=== PATIENT | female | born 1955 | race Caucasian/White ===

== ENCOUNTER 2019-06-01 06:52 | Day surgery (SDC) | payer MEDICARE, OTHER ==
[~2019-06-01 06:52] MED LIST: Lactated Ringers 1,000 ML IV SCH
[2019-06-01] MEDS ORDERED: fentaNYL 100 MCG/2 ML SDV ONE (06:59)
[2019-06-01] MEDS ORDERED: Midazolam 1 MG/ML 2 ML SDV ONE (06:59)
[2019-06-01] MEDS ORDERED: Propofol 200 MG/20 ML SDV ONE (06:59)
--- NOTE | 2019-06-01 07:28 | PCM.PREANE ---
Preanesthetic Assessment - Anesthesia/Transfusion/Family Hx Anesthesia History: Prior Anesthesia Without Reaction Family History of Anesthesia Reaction: No Transfusion History: Prior Transfusion Without Reaction Intubation History: Unknown - Review of Systems General: No Symptoms Pulmonary: No Symptoms Cardiovascular: No Symptoms Gastrointestinal: No Symptoms, Other (colon polyps 3 years ago on colonoscopy) Neurological: No Symptoms Other: Reports: None - Physical Assessment Height: 5 ft 4 in Weight: 68.492 kg ASA Class: 2 Mental Status: Alert & Oriented x3 Airway Class: Mallampati = 2 Dentition: Reports: Normal Dentition Thyro-Mental Finger Breadths: 3 Mouth Opening Finger Breadths: 3 ROM/Head Extension: Full Lungs: Clear to Auscultation, Normal Respiratory Effort Cardiovascular: Regular Rate, Regular Rhythm - Allergies Allergies/Adverse Reactions: Allergies Allergy/AdvReac Type Severity Reaction Status Date / Time shellfish derived Allergy Anaphylactic Verified 05/20/19 09:21 Shock - Blood Blood Available: No - Anesthesia Plan Pre-Op Medication Ordered: None - Acknowledgements Anesthesia Type Planned: MAC Pt an Appropriate Candidate for the Planned Anesthesia: Yes Alternatives and Risks of Anesthesia Discussed w Pt/Guardian: Yes Pt/Guardian Understands and Agrees with Anesthesia Plan: Yes PreAnesthesia Questionnaire HEENT History: Reports: Other (See Below) Other HEENT History: wears glasses/contacts Cardiovascular History: Reports: Afib (controled heart rate), High Cholesterol ( placed on cholesterol meds as precautionary measure to prevent build up of carotid plaques) Respiratory History: Reports: None Gastrointestinal History: Reports: Colon Polyp (3 years ago) Genitourinary History: Reports: None [employer] History: Reports: Musculoskeletal History: Reports: None Neurological History: Reports: Migraines Psychiatric History: Reports: None Endocrine/Metabolic History: Reports: Hypothyroidism Hematologic History: Reports: Blood Transfusion(s) Immunologic History: Reports: None Oncologic (Cancer) History: Reports: None Dermatologic History: Reports: None - Past Surgical History Head Surgeries/Procedures: Reports: None HEENT Surgical History: Reports: Oral Surgery Cardiovascular Surgical History: Reports: None Respiratory Surgical History: Reports: None GI Surgical History: Reports: Colonoscopy (3 years ago) Female Surgical History: Reports: Section Endocrine Surgical History: Reports: None Neurological Surgical History: Reports: None Musculoskeletal Surgical History: Reports: None Oncologic Surgical History: Reports: None Dermatological Surgical History: Reports: None - History Comment History Comment: etoh "1x a month" - SUBSTANCE USE Smoking Status *Q: Never Smoker Recreational Drug Use History: No - HOME MEDS Home Medications: Home Meds Ascorbate Calcium [Vitamin C] 500 mg PO DAILY 05/20/19 [History] Aspirin [Halfprin] 81 mg PO DAILY 05/20/19 [History] Diltiazem [Cardizem CD] 120 mg PO DAILY 05/20/19 [History] EPINEPHrine [Epipen] 1 injection SUBCUT ASDIRECTED PRN 05/20/19 [History] Levothyroxine 25 mcg PO DAILY 05/20/19 [History] Multivitamin [Multivitamins] 1 tab PO DAILY 05/20/19 [History] Fish Oil/[place]-3 Fatty Acids [Fish Oil 1,000 MG] 1,000 mg PO DAILY 05/27/19 [ History] Lovastatin 20 mg PO DAILY 05/27/19 [History] - CURRENT (IN HOUSE) MEDS Current Meds: Current Medications Lactated Ringer's (Ringers, Lactated) 1,000 mls @ 125 mls/hr IV ASDIRECTED JOANNE Discontinued Medications Fentanyl (Sublimaze) Confirm Administered Dose 100 mcg .ROUTE .STK-MED ONE Stop: 06/01/19 07:00 Lidocaine HCl (Xylocaine-Mpf 1%) Confirm Administered Dose 5 ml .ROUTE .STK-MED ONE Stop: 06/01/19 07:10 Midazolam HCl (Versed 1 Mg/Ml) Confirm Administered Dose 2 mg .ROUTE .STK-MED ONE Stop: 06/01/19 07:00 Propofol (Diprivan 20 Ml) Confirm Administered Dose 200 mg .ROUTE .STK-MED ONE Stop: 06/01/19 07:00
--- NOTE | 2019-06-01 08:20 | PCM.OPNOTE ---
- General Post-Op/Procedure Note Date of Surgery/Procedure: 06/01/19 Operative Procedure(s): colonoscopy Findings: see [id number] Pre Op Diagnosis: positive fam hx and hx of TA polyp Post-Op Diagnosis: same Anesthesia Technique: Moderate Sedation Primary Surgeon: Reinaldo Howard Complications: None Condition: Good
--- NOTE | 2019-06-01 08:49 | PCM48HPAN ---
Post Anesthesia Note - EVALUATION WITHIN 48HRS OF ANESTHETIC Vital Signs in Normal Range: Yes Patient Participated in Evaluation: Yes Respiratory Function Stable: Yes Airway Patent: Yes Cardiovascular Function Stable: Yes Hydration Status Stable: Yes Pain Control Satisfactory: Yes Nausea and Vomiting Control Satisfactory: Yes Mental Status Recovered: Yes Vital Signs: Last Vital Signs Temp 36.4 C 06/01/19 07:48 Pulse 62 06/01/19 08:23 Resp 11 L 06/01/19 08:23 BP 91/54 L 06/01/19 08:23 Pulse Ox 96 06/01/19 08:23 - COMMENTS/OBSERVATIONS Free Text/Narrative:: No anesthesia problems
--- NOTE | 2019-06-01 08:49 | PCM.POSTAN ---
POST ANESTHESIA ASSESSMENT - MENTAL STATUS Mental Status: Alert, Oriented - VITAL SIGNS Vital Signs: Last Vital Signs Temp 36.4 C 06/01/19 07:48 Pulse 62 06/01/19 08:23 Resp 11 L 06/01/19 08:23 BP 91/54 L 06/01/19 08:23 Pulse Ox 96 06/01/19 08:23 - RESPIRATORY Respiratory Status: Respiratory Rate WNL, Airway Patent, O2 Saturation Stable - CARDIOVASCULAR CV Status: Pulse Rate WNL, Blood Pressure Stable - GASTROINTESTINAL GI Status: No Symptoms - PAIN Pain Score: 0 - POST OP HYDRATION Hydration Status: Adequate & Stable - OBSERVATIONS Free Text/Narrative:: No anesthesia problems
--- NOTE | 2019-06-01 09:37 | OR ---
SURGEON: Reinaldo Howard MD DATE OF PROCEDURE: 06/01/2019 PREOPERATIVE DIAGNOSES: Family history positive and history of TA polyp. PROCEDURE PERFORMED: Colonoscopy. DESCRIPTION OF PROCEDURE: The patient was taken to the endoscopy room. A time out was called, patient identified, and procedure identified. Diprivan was then administrated. Patient went from awake to sleep, hearing doctor talking or door closing is normal. Perineum inspection and digital examination were then performed. A well- lubricated colonoscope was gently inserted through the rectum, advanced past the rectosigmoid junction, the descending colon, splenic flexure, transverse colon, hepatic flexure, ascending colon, arrived to the cecum. Cecum was identified as dictated in the finding. Then the scope was carefully withdrawn while attention was paid to the mucosal surface for any abnormality. Air will be sucked out during the scope withdrawal. At the rectum, retroflexed to examine any rectal diseases, fistula or hemorrhoids. Patient tolerated procedure well. There were no intraoperative complications, and Dr. Howard was present throughout the whole procedure. FINDINGS: 1. The patient is easily sedated with MET[employer] MAINTENANCE PERSON and Diprivan, the patient is soundly snoring. 2. Bowel prep is average to good, very little liquid stool, no semi-formed stool. 3. Colon is rather straightforward. Cecum indicated by ileocecal fold, one-to- one indentation, and appendiceal orifice. Light emittance is not observed. ScopeGuide was pointing south. Mucosa examined upon scope pulling out with some irrigation. The patient does not have diverticulosis, polyp, mass, growth, inflammation, stricture, ulceration, AV malformation, bleeding, ulcer, none of those. The patient has very mild internal hemorrhoids, no external hemorrhoids. The patient would benefit from repeat colonoscopy in 3 years from today because of family history or if clinically indicated otherwise. LINDA / BRENDA /[id number]
[2019-06-01 10:20] VITALS: BP 109/67; PULSE 63
== END 2019-06-01 09:05 | disposition home or self-care (01) ==
LOC: MW.SDS 06:52
PROVIDERS: ATTEND Surgery
DX: Z12.11 Encounter for screening for malignant neoplasm of colon (principal); K64.8 Other hemorrhoids; Z86.010 Personal history of colon polyps; Z83.71 Family history of colonic polyps; Z91.018 Allergy to other foods; Z91.013 Allergy to seafood
CPT/HCPCS: G0105; J2001; J2250; J2704; J3010; J7120

== ENCOUNTER 2022-11-04 08:27 | Day surgery (SDC) | payer MEDICARE, OTHER ==
[~2022-11-04 08:27] MED LIST changes: +Sodium Chloride 0.9% 10 ML Syringe FLUSH PRN; +Sodium Chloride 0.9% 2.5 ML Syringe FLUSH PRN; +Sodium Chloride 0.9% 20 ML SDV IV PRN
[2022-11-04] MEDS ORDERED: Propofol 200 MG/20 ML SDV ONE (09:35)
[2022-11-04 13:14] VITALS: BP 125/86; PULSE 58
== END 2022-11-04 10:47 | disposition home or self-care (01) ==
LOC: MW.SDS 08:27
PROVIDERS: ATTEND Surgery
DX: Z12.11 Encounter for screening for malignant neoplasm of colon (principal); K63.5 Polyp of colon; I48.91 Unspecified atrial fibrillation; E03.9 Hypothyroidism, unspecified; E78.00 Pure hypercholesterolemia, unspecified; G43.909 Migraine, unspecified, not intractable, without status migrainosus; Z91.013 Allergy to seafood; Z86.010 Personal history of colon polyps; Z80.0 Family history of malignant neoplasm of digestive organs; Z79.82 Long term (current) use of aspirin; Z79.890 Hormone replacement therapy; Z79.899 Other long term (current) drug therapy
CPT/HCPCS: 45380; J2704; J7120

== ENCOUNTER 2024-04-12 10:43 | Emergency (ER) | payer MEDICARE, OTHER ==
[2024-04-12 10:52] VITALS: BP 109/90; PULSE 84
[2024-04-12] MEDS: Lidocaine 1% 5 ML VIAL INJECT ONE (10:54)
[2024-04-12] MEDS: Cephalexin 500 MG Cap PO ONE (12:15)
[2024-04-12] MEDS: Bacitracin Oint 1 GM U/D Packet TOP ONE (12:15)
[2024-04-12] MEDS: traMADol 50 MG Tab PO ONE (12:15)
== END 2024-04-12 12:30 | disposition home or self-care (01) ==
LOC: MW.ED 10:43
DX: S62.634B Displaced fracture of distal phalanx of right ring finger, initial encounter for open fracture (principal); E03.9 Hypothyroidism, unspecified; Z79.82 Long term (current) use of aspirin; Z79.899 Other long term (current) drug therapy; Z91.013 Allergy to seafood; W31.89XA Contact with other specified machinery, initial encounter; Z75.8 Other problems related to medical facilities and other health care
CPT/HCPCS: 12001; 73140; 99283; A9270; 99282; J3490

== ENCOUNTER 2024-04-20 13:27 | Emergency (ER) | payer MEDICARE, OTHER ==
[2024-04-20 14:01] VITALS: BP 108/69; PULSE 72
== END 2024-04-20 15:17 | disposition home or self-care (01) ==
LOC: MW.ED 13:27
DX: T81.49XA Infection following a procedure, other surgical site, initial encounter (principal); L03.011 Cellulitis of right finger; Z48.02 Encounter for removal of sutures; I48.91 Unspecified atrial fibrillation; E03.9 Hypothyroidism, unspecified; Z91.013 Allergy to seafood; Z79.82 Long term (current) use of aspirin; Z79.890 Hormone replacement therapy; Z79.899 Other long term (current) drug therapy; Z75.8 Other problems related to medical facilities and other health care
CPT/HCPCS: 99282